=== PATIENT | male | born 1990 | race Caucasian/White ===

== ENCOUNTER → 2016-06-06 | Outpatient (CLI) | payer OTHER ==
--- NOTE | 2016-06-06 10:14 | US ---
Testicular Sonogram Clinical Indications: Palpable lump, right testicle. Technique: Scrotal contents were imaged with the high-resolution transducer. Color and pulsed Doppl er were recorded on each side. Findings: The right testicle is normal in size, morphology, and echotexture and measures 3.7 x 2.5 x 4.9 cm in length. The epididymis is normal. There is normal flow and a normal resistive index of the testicle of 0.43. There is a small appendix testes measuring 4 x 3 x 2 mm. There is a very small hyd rocele. The area of abnormality is a normal-appearing epididymal head. Left testicle measures 3.5 x 2.5 x 4.8 cm. It is normal in size, , and echotexture. It exhibits therese l flow and a normal resistive index of 0.54. There is a small hydrocele. Impression: 1. The palpable abnormality felt by the patient is the epididymal head. There is also a small appendi x testes in that region. 2. Small hydroceles. Critical results relayed by Dr. Menezes to Dr. Klein June 06, 2016 at 10:00 a.m.
== END ==
LOC: BMCIMAGING 08:29
PROVIDERS: ATTEND Internal Medicine
DX: N50.819 Testicular pain, unspecified (principal)